=== PATIENT | male | born 1995 | race American Indian/Alaskan Native ===

== ENCOUNTER 2019-08-19 17:31 | Emergency (ER) | payer OTHER ==
[2019-08-19 17:38] VITALS: BP 122/80
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
== END 2019-08-19 18:44 | disposition left against medical advice (07) ==
LOC: ED 17:31
DX: M54.2 Cervicalgia (principal); R51 Headache; Z53.21 Procedure and treatment not carried out due to patient leaving prior to being seen by health care provider